=== PATIENT | male | born 1990 | race Caucasian/White ===

== ENCOUNTER 2018-11-14 16:46 | Outpatient (CLI) | payer OTHER ==
--- NOTE | 2018-11-14 20:10 | RAD ---
THORACIC SPINE THREE VIEWS: History: Low back pain. FINDINGS: There is a lower thoracic vertebral body seen on the lateral view which shows vertical height loss an teriorly, evidence for a compression fracture. I favor this to be T11. Follow up CT scan is recommend ed for further assessment. IMPRESSION: Compression or burst type fracture of one of the lower thoracic vertebral bodies, I favor this to be T11. Findings were discussed with Dr. Obed Del Rosario at 5:01 p.m. He indicated that the patient gave a hist ory of having a prior fracture, but is still having pain. A follow up thoracic spine MRI is recommend ed for further assessment of this. Code CR POS: [facility]
== END 2018-11-14 16:47 | disposition home or self-care (01) ==
LOC: RAD 16:46
PROVIDERS: ATTEND Family Medicine
DX: M54.5 Low back pain (principal); S22.001A Stable burst fracture of unspecified thoracic vertebra, initial encounter for closed fracture
CPT/HCPCS: 72072

== ENCOUNTER 2018-12-07 12:13 | Outpatient (CLI) | payer OTHER ==
--- NOTE | 2018-12-07 14:04 | MRI ---
MRI OF THE LUMBAR SPINE WITHOUT CONTRAST: INDICATION: History of a closed fracture of T11 with also a fracture of T12. This occurred 2-1/2 years ago. The patient has had low back pain since. No recent trauma is reported. No prior surgeries are reported . TECHNIQUE: Multiplanar, multisequence MR images were obtained of the lumbar spine without IV contrast. No radio graphic or MR comparisons are available. Five lumbar-type vertebral bodies are assumed for the purpo ses of this exam. FINDINGS: The conus is seen to terminate at approximately T12. There is a suggestion of a mild chronic-appearing wedge abnormality involving T11. At L5-S1, there is no appreciable central canal or neural foraminal narrowing. At L4-5, there is mild facet joint degenerative change, but no appreciable central canal or neural fo raminal narrowing. At L3-4, there is mild facet joint degenerative change and a broad-based bulge, but no appreciable ce ntral canal or neural foraminal narrowing. At L2-3, there is mild facet joint degenerative change a mild broad-based bulge, but no appreciable c entral canal or neural foraminal narrowing. At L1-L2, there is no appreciable central canal or neural foraminal narrowing. At T12-L1, there is no appreciable central canal or neural foraminal narrowing. At T11-T12, there is a left paracentral disk protrusion causing mild effacement of the left ventral l ateral aspect of the subarachnoid space. There is potential for mild contact of the left ventral lat eral spinal cord. There is no definite spinal cord signal abnormality. The visualized neural forame n are patent. IMPRESSION: 1. Left paracentral disk protrusion at T11-T12 causing mild ventral effacement of the left ventral l ateral subarachnoid space with potential for contact of the spinal cord. 2. Mild multilevel spondylosis of the lumbar spine. POS: [facility]
== END 2018-12-07 12:14 | disposition home or self-care (01) ==
LOC: BICMRI 12:13
PROVIDERS: ATTEND Family Medicine
DX: S22.089S Unspecified fracture of T11-T12 vertebra, sequela (principal); M47.816 Spondylosis without myelopathy or radiculopathy, lumbar region; M51.24 Other intervertebral disc displacement, thoracic region
CPT/HCPCS: 72148

== ENCOUNTER 2018-12-09 20:30 | Outpatient (CLI) | payer OTHER | END 2018-12-09 20:31 | disposition home or self-care (01) | LOC: SLEEPLAB 20:30 | PROVIDERS: ATTEND Family Medicine | DX: G47.33 Obstructive sleep apnea (adult) (pediatric) (principal); R06.83 Snoring; G47.10 Hypersomnia, unspecified; K21.9 Gastro-esophageal reflux disease without esophagitis; G47.00 Insomnia, unspecified | CPT/HCPCS: 95811 ==

== ENCOUNTER 2021-02-14 08:49 | Outpatient (CLI) | payer OTHER | END 2021-02-14 08:50 | disposition home or self-care (01) | LOC: BICULT 08:49 | PROVIDERS: ATTEND Family Medicine | DX: R10.13 Epigastric pain (principal) | CPT/HCPCS: 76705 ==

== ENCOUNTER 2021-06-11 07:44 | Outpatient (CLI) | payer OTHER | END 2021-06-11 07:45 | disposition home or self-care (01) | LOC: TBSIIMAG 07:44 | PROVIDERS: ATTEND Neurological Surgery | DX: M50.122 Cervical disc disorder at C5-C6 level with radiculopathy (principal); M48.02 Spinal stenosis, cervical region | CPT/HCPCS: 72141 ==

== ENCOUNTER 2021-12-02 15:08 | Outpatient (CLI) | payer BC | END 2021-12-02 15:09 | disposition home or self-care (01) | LOC: SCSMRI 15:08 | PROVIDERS: ATTEND Specialist | DX: M51.16 Intervertebral disc disorders with radiculopathy, lumbar region (principal); M47.26 Other spondylosis with radiculopathy, lumbar region; M51.24 Other intervertebral disc displacement, thoracic region | CPT/HCPCS: 72148 ==

== ENCOUNTER 2022-09-05 11:09 | Emergency (ER) | payer BC ==
[2022-09-05 12:18] LABS: #Basophils 0.1 thou/uL (0.0-0.2); #Eosinphils 0.3 thou/uL (0.0-0.7); #Lymphocytes 1.3 thou/uL (1.20-3.40); #Monocytes 0.8 thou/uL (0.11-0.59); %Basophils 0.7 % (0.0-1.0); %Eosinophils 3.1 % (0.0-10.0); %Lymphocytes 15.3 % (21.0-51.0); %Monocytes 9.4 % (0.0-10.0); %Neutrophils 71.5 % (42.0-75.0); Hemoglobin 15.1 g/dL (14.0-18.0); Mean Corpuscular HGB CONC 33.3 g/dL (32.0-36.0); Mean Corpuscular Hemoglobin 28.4 pg (27.0-31.0); Mean Corpuscular Volume 85.1 fl (78.0-98.0); Mean Platelet Volume 6.6 fL (7.4-10.4); Platelet Count 282 10x3/uL (130-400); Red Blood Cell (RBC) Count 5.31 mill/uL (4.70-6.10); White Blood Cell (WBC) Count 8.3 10x3/uL (4.8-10.8)
[2022-09-05] MEDS ORDERED: Ketorolac Tromethamine 30 MG/ML VIAL ONE (12:33)
[2022-09-05 12:39] LABS: ALT (SGPT) 27 U/L (8-55); AST (SGOT) 21 U/L (5-34); Albumin 4.3 g/dL (3.5-5.0); Alkaline Phosphatase 62 U/L (40-110); Anion Gap 10 mmol/L (10-20); BUN (Urea Nitrogen) 12 mg/dL (8.9-20.6); Bilirubin, Total 0.9 mg/dL (0.2-1.2); Calc. Creatinine Clearance 0 mL/min (70-130); Calcium 9.2 mg/dL (7.8-10.44); Carbon Dioxide 29 mmol/L (22-29); Chloride 105 mmol/L (98-107); Estimated GFR 112; Globulin 2.9 g/dL (2.4-3.5); Glucose 83 mg/dL (70-105); Potassium 4.1 mmol/L (3.5-5.1); Protein, Total 7.2 g/dL (6.0-8.3); Sodium 140 mmol/L (136-145)
== END 2022-09-05 14:56 | disposition home or self-care (01) ==
LOC: ERS 11:09
DX: K11.20 Sialoadenitis, unspecified (principal)
CPT/HCPCS: 36415; 70491; 80053; 85025; 86735; 96374; J1885

== ENCOUNTER 2024-08-08 16:00 | Outpatient (CLI) | payer OTHER | END 2024-08-08 16:01 | disposition home or self-care (01) | LOC: SCSRAD 16:00 | DX: R00.2 Palpitations (principal) | CPT/HCPCS: 71046 ==

== ENCOUNTER 2024-10-06 15:16 | Outpatient (CLI) | payer OTHER | END 2024-10-06 15:17 | disposition home or self-care (01) | LOC: BICRAD 15:16 | PROVIDERS: ATTEND Nurse Practitioner Family | DX: M54.12 Radiculopathy, cervical region (principal) | CPT/HCPCS: 72050 ==